=== PATIENT | male | born 1970 | race Caucasian/White ===

== ENCOUNTER → 2019-06-12 | Outpatient (CLI) | payer OTHER ==
--- NOTE | 2019-06-12 17:13 | MR ---
EXAMINATION TYPE: MR ankle RT wo/w con DATE OF EXAM: 06/12/2019 COMPARISON: None HISTORY: Mass, right tarsal tunnel / Pain 3-4 months CONTRAST: Standard multiplanar, multisequence MRI departmental protocol utilizing 8.5 mL intravenous Gadavist g adolinium contrast. FINDINGS: Ankle mortise is anatomic. The collateral ligaments are intact. Medial and lateral flexor t endons of the ankle appear intact. Subtalar joint is intact. There is 2 x 1 cm cystic fluid collectio n in the soft tissues of at the medial posterior aspect of the talus. The Achilles tendon is intact. Plantar fascia is intact. There is no evidence of a fracture. IMPRESSION: Cystic fluid collection with surrounding edema at the posterior medial aspect of the hindfoot in the area of concern that is also marked on the images. This could be a synovial cyst or chronic hematoma or seroma. No fracture seen.
== END | disposition home or self-care (01) ==
LOC: RADMRIMAIN 09:33
PROVIDERS: ATTEND Podiatrist Foot & Ankle Surgery
DX: L72.8 Other follicular cysts of the skin and subcutaneous tissue (principal); R60.0 Localized edema
CPT/HCPCS: 73723; A9585